=== PATIENT | female | born 1970 | race Caucasian/White ===

== ENCOUNTER 2023-03-15 10:39 | Emergency (ER) | payer MEDICAID ==
[~2023-03-15] VITALS: Ht 167.6 cm; Wt 93.0 kg
[2023-03-15 12:00] LABS: BASOPHILS 2.4 % (0-2); EOSINOPHILS 2.5 % (0-6); HEMATOCRIT 35.8 % (35.0-50.0); HEMOGLOBIN 11.7 g/dL (12.0-18.0); LYMPHOCYTES 40.1 % (24-44); MCH 33.8 (27-36); MCHC 32.6 g/dl (30-36); MCV 103.5 fl (81-99); MONOCYTES 6.2 % (0-12); NEUTROPHILS 48.8 % (39-80); PLATELET COUNT 149 K/uL (140-440); RBC 3.46 M/ul (4.3-5.7)
[2023-03-15 12:17] LABS: ALBUMIN 4.3 g/dL (3.4-5.0); ALBUMIN/GLOBULIN RATIO 1.13 (1.1-2.4); ANION GAP 22.9 (7-21); BILIRUBIN, TOTAL 1.1 ng/dL (0.2-1.0); BUN/CREATININE RATIO 16.9 (6.0-28.6); CALCIUM 9.5 mg/dL (8.5-10.1); CREATININE, SERUM 0.71 mg/dL (0.55-1.02); POTASSIUM 3.9 mmol/L (3.5-5.1); PROTEIN, TOTAL 8.1 g/dL (6.4-8.2)
[2023-03-15] MEDS ORDERED: ONDANSETRON HCL4 MG PO (13:19)
[2023-03-15] MEDS ORDERED: PHENOBARBITAL60 MG PO (13:19)
--- OUTSIDE RECORDS SUMMARY | 2023-03-15 13:30 | XMS ---
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 [place] - 2 Visits in 30 Days CARE PROVIDERS -, Lola Machuca Dentist: [employer] Current [employer] [facility] PHONE: [phone] [facility] Clinical Medical Laboratory [facility], [facility] PHONE: [phone] Courtney has no Care Guidelines for this patient. E.D. VISIT COUNT (12 MO.) [address] TOTAL 11 NOTE: Visits indicate total known visits. ED/UCC VISIT TRACKING (12 MO.) 03/15/2023 10:[address] [facility] [place] TYPE: Emergency COMPLAINT: - VOMITING 03/07/2023 17:15 [facility] [place] TYPE: Emergency DIAGNOSES: 35732. ETOH 02/09/2023 17:44 [facility] [place] TYPE: Emergency DIAGNOSES: 49399. ETOH WITHDRAWAL 32704. Alcohol use, unspecified with withdrawal, uncomplicated 02/07/2023 16:35 [facility] [place] TYPE: Emergency DIAGNOSES: 29710. Fell Down, L shoulder Inj 01/27/2023 09:34 [facility] [place] TYPE: Emergency DIAGNOSES: 03737. AB PAIN 56204. Bariatric surgery status 27652. Dehydration 55354. Diarrhea, unspecified 56417. Epigastric pain 59792. Nausea 01/10/2023 14:44 [facility] [place] TYPE: Emergency DIAGNOSES: 59681. VOMITING SOAR THROAT . VOMITING SORE THROAT 11386. Acute pharyngitis, unspecified 01287. Diarrhea, unspecified 95916. Elevated blood-pressure reading, without diagnosis of hypertension 05972. Nausea with vomiting, unspecified 68436. Periumbilical pain [facility] [place] [facility] DIAGNOSES: 51191. SOB CP 11[facility]28[facility]22 00[facility] DIAGNOSES: 45541. :Latex allergy reaction tongue and throat swelling 54309. Allergy, unspecified, initial encounter 08/29/2022 09:42 [facility] TYPE: Emergency DIAGNOSES: - Low back pain, unspecified - Back Pain - Left lower back pain 04/21/2022 01:27 [facility] [place] [facility] DIAGNOSES: 97843. L eye swelling bruising 96413. Hemorrhage of left orbit 03/18/2022 11:07 [facility] [place] [facility] DIAGNOSES: 80433. T HIP PAIN 27144. Myalgia, other site 37553. Pain in unspecified hip INPATIENT VISIT TRACKING (12 MO.) 02/09/2023 17[facility] [place] [facility] DIAGNOSES: . Alcohol use, unspecified with withdrawal, uncomplicated [email or web address]
[2023-03-15] MEDS ORDERED: CLONIDINE HCL0.1 MG PO (14:40)
[2023-03-15 14:49] VITALS: BP 142/80
== END 2023-03-15 14:51 | disposition home or self-care (01) ==
LOC: ED 10:39
PROVIDERS: Internal Medicine
DX: F10.10 Alcohol abuse, uncomplicated (principal); F43.10 Post-traumatic stress disorder, unspecified
CPT/HCPCS: 36415; 80053; 83690; 85025; 96374; 96375; 99284-25; G0480; J1200; J2560; J2765; J3411; J7030